=== PATIENT | female | born 2000 | race Caucasian/White ===

== ENCOUNTER 2024-04-06 07:53 | Outpatient (CLI) | payer OTHER, SELFPAY | END 2024-04-06 07:54 | disposition home or self-care (01) | LOC: WOUND 07:55 | PROVIDERS: PCP Family Medicine; Visit Provider Physician Assistant Surgical | DX: T23.321A Burn of third degree of single right finger (nail) except thumb, initial encounter (principal); X08.8XXA Exposure to other specified smoke, fire and flames, initial encounter; W39.XXXA Discharge of firework, initial encounter | CPT/HCPCS: G0463 ==